=== PATIENT | female | born 1980 | race Hispanic/Latino ===

== ENCOUNTER 2025-01-15 22:08 | Emergency (ER) | payer MEDICAID, SELFPAY ==
[2025-01-15] MEDS ORDERED: Labetalol HCl 100 MG/20 ML VIAL ONE ×2 (22:42→23:19)
[2025-01-15] MEDS ORDERED: Magnesium 2 GM/50 ML BAG (IN WATER) ONE ×3 (22:42→23:13)
[2025-01-15 23:34] LABS: PTT 30.6 sec (22.9-36.1); Prothrombin Time 12.9 sec (12.0-14.7)
[2025-01-15 23:36] LABS: #Basophils 0.05 10x3/uL (0.0-0.2); #Eosinophils 0.08 10x3/uL (0.0-0.7); #Monocytes 0.83 10x3/uL (0.11-0.59); #Neutrophils 8.58 10x3/uL (1.40-6.50); %Basophils 0.4 % (0.0-1.0); %Eosinophils 0.6 % (0.0-10.0); %Lymphocytes 26.4 % (21.0-51.0); %Monocytes 6.4 % (0.0-10.0); %Neutrophils 65.7 % (42.0-75.0); ALT (SGPT) 18 U/L (Less than 34); AST (SGOT) 34 U/L (11-34); Albumin 2.7 g/dL (3.1-4.5); Alkaline Phosphatase 174 U/L (40-110); Anion Gap 12 mmol/L (10-20); BUN (Urea Nitrogen) 15 mg/dL (7.0-18.7); Bilirubin, Total 0.2 mg/dL (0.3-1.2); Calc. Creatinine Clearance 0 mL/min (70-130); Calcium 8.1 mg/dL (7.8-10.44); Carbon Dioxide 16 mmol/L (22-29); Chloride 113 mmol/L (98-107); Estimated GFR 113; Globulin 3.7 g/dL (2.4-3.5); Glucose 66 mg/dL (70-105); Hematocrit 27.6 % (36.0-47.0); Hemoglobin 8.7 g/dL (12.0-16.0); Mean Corpuscular HGB CONC 31.5 g/dL (32.0-36.0); Mean Corpuscular Hemoglobin 23.1 pg (27.0-31.0); Mean Corpuscular Volume 73.4 fL (78.0-98.0); Mean Platelet Volume 10.9 fL (7.4-10.4); Platelet Count 308 10x3/uL (130-400); Potassium 3.8 mmol/L (3.5-5.1); Protein, Total 6.4 g/dL (6.0-8.3); RBC Distribution Width 18.5 % (11.5-14.5); Red Blood Cell (RBC) Count 3.76 mill/uL (4.20-5.40); Sodium 137 mmol/L (136-145); White Blood Cell (WBC) Count 13.05 10x3/uL (4.8-10.8)
[2025-01-15 23:51] LABS: Bilirubin Negative (Negative); Blood, Urine Negative (Negative); CAUTI Indications for Culture Urological Procedure; Clarity Clear (Clear); Glucose, Urine (Dipstick) Normal (Negative); Ketone, Urine Negative (Negative); Leukocyte Negative Leu/uL (Negative); Nitrite Negative (Negative); Protein, Urine (Dipstick) 30 mg/dL (Neg-Trace); RBC/HPF 0-3 HPF (0-3); Specific Gravity, Urine 1.009 (1.002-1.036); Squamous Epithelial 0-3 HPF (0-3); Urobilinogen Normal mg/dL (Less than 2); WBC/HPF 0-3 HPF (0-3)
[2025-01-15 23:53] LABS: Bacteria/HPF 1+ HPF (None Seen); Urine Culture Reflex Yes Yes
[2025-01-15 23:57] LABS: Amphetamine Negative (Negative); Barbiturates Screen Negative (Negative); Benzodiazepine Screen Negative (Negative); Cocaine Metabolite Screen Negative (Negative); Methadone Negative (Negative); Methamphetamine Negative (Negative); Opiate Screen Negative (Negative); Oxycodone Screen Negative (Negative); Phencyclidine (PCP) Negative (Negative); THC/Cannabinoid Screen Negative (Negative); Tricyclic Screen Negative (Negative)
[2025-01-15 23:59] LABS: Creatinine, Urine 37.92 mg/dL (15.00-278.00)
[2025-01-16 01:03] LABS: Anisocytosis SLIGHT = 6-15 cells HPF (0-5); Macrocytosis SLIGHT = 6-15 cells HPF (0-5); Platelet Adequacy Comment Platelets Normal; Polychromasia SLIGHT = 2-3 cells HPF (0-2)
== END 2025-01-15 23:33 | disposition short-term general hospital (02) ==
LOC: ERS 22:08
DX: O47.1 False labor at or after 37 completed weeks of gestation (principal); O14.93 Unspecified pre-eclampsia, third trimester; Z3A.37 37 weeks gestation of pregnancy
CPT/HCPCS: 51702; 76815; 80053; 80306; 81001; 82570; 84156; 85025; 85610; 85730; 86850; 86900; 86901; 87086; 96365; 96375; 96376; J3475